=== PATIENT | female | born 1995 | race Caucasian/White ===

== ENCOUNTER 2017-05-10 20:36 | Emergency (ER) | payer OTHER ==
[~2017-05-10] VITALS: Ht 157.5 cm; Wt 88.5 kg
[2017-05-10] MEDS ORDERED: PROMETHAZINE HC25 M1 PO (21:03)
[2017-05-10] MEDS ORDERED: RANITIDINE HCL150 M1 PO (21:03)
[2017-05-10] MEDS ORDERED: PRENATABS FA T1 EACH PO (21:04)
[2017-05-10] MEDS ORDERED: VITAMIN B COMP1 EACH PO (21:05)
[2017-05-10] MEDS ORDERED: VITAMIN D1000 UNI1 PO (21:05)
== END 2017-05-10 23:21 | disposition home or self-care (01) ==
LOC: ED 20:36
DX: O99.89 Other specified diseases and conditions complicating pregnancy, childbirth and the puerperium (principal); M54.5 Low back pain; O99.331 Smoking (tobacco) complicating pregnancy, first trimester; F17.200 Nicotine dependence, unspecified, uncomplicated; Z91.040 Latex allergy status; Z88.0 Allergy status to penicillin; Z88.6 Allergy status to analgesic agent; Z79.899 Other long term (current) drug therapy
CPT/HCPCS: 81001; 99283

== ENCOUNTER 2017-05-20 14:17 | Emergency (ER) | payer OTHER ==
[~2017-05-20] VITALS: Ht 157.5 cm; Wt 88.5 kg
[~2017-05-20 14:17] MED LIST: PRENATABS FA T1 EACH PO; PROMETHAZINE HC25 M1 PO; RANITIDINE HCL150 M1 PO; VITAMIN B COMP1 EACH PO; VITAMIN D1000 UNI1 PO
== END 2017-05-20 16:25 | disposition home or self-care (01) ==
LOC: ED 14:17
DX: O47.02 False labor before 37 completed weeks of gestation, second trimester (principal); O99.332 Smoking (tobacco) complicating pregnancy, second trimester; F17.200 Nicotine dependence, unspecified, uncomplicated; Z87.442 Personal history of urinary calculi; Z91.040 Latex allergy status; Z88.1 Allergy status to other antibiotic agents; Z79.899 Other long term (current) drug therapy; Z3A.16 16 weeks gestation of pregnancy
CPT/HCPCS: 76815; 80048; 81001; 85025; 99284